=== PATIENT | female | born 1965 | race Caucasian/White ===

== ENCOUNTER → 2022-01-21 | Outpatient (CLI) | payer BC ==
--- NOTE | 2022-01-21 17:51 | CT ---
EXAMINATION TYPE: CT elbow LT wo con DATE OF EXAM: 01/21/2022 COMPARISON: None HISTORY: Left elbow pain displaced radial head fracture CT DLP: 226.07 mGycm Automated exposure control for dose reduction was used. Contrast: None Technique: Axial images 3 mm thick sections. Reconstructed images in coronal and sagittal plane. Thre e-D reconstructed images were performed. There is limitation due to positioning and body habitus. FINDINGS: The olecranon articulates with the humerus. There is a comminuted radial head fracture. Some mild diastases fracture fragments is present. Articu lar surface fractures are evident. The lateral aspect of the radial head may be rotated and lateral t o the humerus. Three-D reconstructed images are performed by the technologist and presented. IMPRESSION: 1. COMMINUTED FRACTURE RADIAL HEAD. RADIAL HEAD FRACTURE FRAGMENT IS SUSPECTED DISPLACED LATERAL TO T HE HUMERUS.
== END | disposition home or self-care (01) ==
LOC: RADCTMAIN 07:15
PROVIDERS: ATTEND Orthopaedic Surgery
DX: S52.122A Displaced fracture of head of left radius, initial encounter for closed fracture (principal)